=== PATIENT | male | born 1975 | race Caucasian/White ===

== ENCOUNTER 2018-10-15 19:14 | Emergency (ER) | payer OTHER ==
[~2018-10-15] VITALS: Ht 193 cm; Wt 130.8 kg
[2018-10-15] MEDS ORDERED: SODIUM CHLORIDE FLUSH 10ML SYR IVF ONE (19:30)
--- NOTE | 2018-10-15 19:37 | NUR ---
IV ESTABLISHED. DR. RIVERA HAS BEEN IN TO EVAL. ALL MONITORS IN PLACE. EKG WAS DONE IN TRIAGE.
[2018-10-15] MEDS ORDERED: DILTIAZEM 5 MG/ML, 5ML ONE (19:40)
[2018-10-15 19:44] LABS: BASOPHILS # (AUTO) 0.03 x10^3/uL (0-0.1); BASOPHILS % (AUTO) 0 % (0-1); EOSINOPHILS # (AUTO) 0.29 x10^3/uL (0-0.4); EOSINOPHILS % (AUTO) 3 % (1-7); LYMPHOCYTES # (AUTO) 3.22 x10^3/uL (1-3.4); LYMPHOCYTES % (AUTO) 28 % (22-44); MD NO; MEAN CORPUSCULAR HEMOGLOBIN 29.5 pg (27.5-34.5); MEAN CORPUSCULAR HGB CONC 33.3 g/dL (33.2-36.2); MEAN CORPUSCULAR VOLUME 88.7 fL (81-97); MEAN PLATELET VOLUME 8.9 fL (7.4-10.4); MONOCYTES # (AUTO) 0.71 x10^3/uL (0.2-0.8); MONOCYTES % (AUTO) 6 % (2-9); NEUTROPHILS # (AUTO) 7.34 x10^3/uL (1.8-6.8); NEUTROPHILS % (AUTO) 63 % (42-75); PLATELET COUNT 277 x10^3/uL (130-400); RED BLOOD COUNT 5.08 x10^6/uL (4.38-5.82)
--- NOTE | 2018-10-15 19:46 | NUR ---
PT. MEDICATED PER JUN. PT. DENIES ANY PAIN. HR DOWN TO 120'S AND APPEARED IRREGULAR ON MONITOR. AT THIS TIME. HR IN THE 80'S AND APPERS TO BE IN NSR. OBTAINING 2ND EKG.
--- NOTE | 2018-10-15 19:50 | NUR ---
PT. STATES "I FEEL SO MUCH BETTER NOW."
[2018-10-15] MEDS ORDERED: DILTIAZEM 5 MG/ML, 5ML IV ONE (20:00)
[2018-10-15 20:02] LABS: ANION GAP 3 mmol/L (5-15); CALCIUM 9.2 mg/dL (8.5-10.1); CHLORIDE 111 mmol/L (98-107); CREATININE 1.53 mg/dL (0.7-1.3)
[2018-10-15 20:06] LABS: FREE T4 (FREE THYROXINE) 0.91 ng/dL (0.76-1.46); TROPONIN I < 0.015 ng/mL (0.000-0.045)
[2018-10-15] MEDS ORDERED: DILTIAZEM 120 MG CAP.ER.24H PO ONE (20:46)
--- NOTE | 2018-10-15 20:50 | NUR ---
MED REQUESTED FROM PHARMACY.
[2018-10-15 20:56] VITALS: BP 103/70
== END 2018-10-15 21:03 | disposition home or self-care (01) ==
LOC: ED 21:00
DX: I48.92 Unspecified atrial flutter (principal)
CPT/HCPCS: 36415; 71045; 80048; 82040; 83735; 83880; 84439; 84443; 84484; 85025; 93005; 96374

== ENCOUNTER 2018-12-03 12:25 | Outpatient (CLI) | payer OTHER | END 2018-12-03 23:59 | disposition home or self-care (01) | LOC: CVU 12:25 | PROVIDERS: ATTEND Internal Medicine Cardiovascular Disease | DX: R00.0 Tachycardia, unspecified (principal); I48.91 Unspecified atrial fibrillation; I10 Essential (primary) hypertension; E66.9 Obesity, unspecified | CPT/HCPCS: 0399T; 93306 ==

== ENCOUNTER 2019-08-11 00:50 | Inpatient (IN) | payer OTHER ==
[~2019-08-11] VITALS: Ht 190.5 cm; Wt 131.0 kg
[2019-08-11] MEDS ORDERED: ONDANSETRON 2MG/ML, 2ML IVPush ONE (01:00)
[2019-08-11] MEDS ORDERED: HYDROmorphone 2 MG/ML, 1ML IVPush PRN (01:00)
[2019-08-11] MEDS ORDERED: SODIUM CHLORIDE 0.9% 1,000ML IVBOLUS ONE (01:00)
[2019-08-11] MEDS ORDERED: HYDROmorphone 1 MG/ML, 1ML INJ ONE (01:12)
[2019-08-11] MEDS ORDERED: ONDANSETRON 2MG/ML, 2ML ONE (01:12)
--- NOTE | 2019-08-11 01:17 | NUR ---
IV SITE STARTED, LABS DRAWN, IV FLUIDS INFUSING, PT MEDICATED PER MAR
--- NOTE | 2019-08-11 01:22 | NUR ---
technical training manager at bedside
[2019-08-11 01:23] LABS: BASOPHILS # (AUTO) 0.06 x10^3/uL (0-0.1); BASOPHILS % (AUTO) 1 % (0-1); EOSINOPHILS # (AUTO) 0.14 x10^3/uL (0-0.4); EOSINOPHILS % (AUTO) 1 % (1-7); LYMPHOCYTES # (AUTO) 1.96 x10^3/uL (1-3.4); LYMPHOCYTES % (AUTO) 18 % (22-44); MD NO; MEAN CORPUSCULAR HGB CONC 33.5 g/dL (33.2-36.2); MEAN CORPUSCULAR VOLUME 86.6 fL (81-97); MONOCYTES # (AUTO) 0.51 x10^3/uL (0.2-0.8); MONOCYTES % (AUTO) 5 % (2-9); NEUTROPHILS % (AUTO) 76 % (42-75); PLATELET COUNT 240 x10^3/uL (130-400); RED CELL DISTRIBUTION WIDTH 14.5 % (9.4-14.8)
[2019-08-11 01:30] LABS: ALANINE AMINOTRANSFERASE 68 U/L (12-78); ALBUMIN 3.8 g/dL (3.4-5.0); ANION GAP 6 mmol/L (5-15); CALCIUM 9.1 mg/dL (8.5-10.1); CHLORIDE 113 mmol/L (98-107); CREATININE 1.19 mg/dL (0.7-1.3)
[2019-08-11 01:32] LABS: ALKALINE PHOSPHATASE 98 U/L (45-117); BILIRUBIN,TOTAL 0.4 mg/dL (0.2-1.0); TOTAL PROTEIN 7.9 g/dL (6.4-8.2)
[2019-08-11] MEDS ORDERED: RISP0.5T3 PO (01:37)
[2019-08-11] MEDS ORDERED: DIAZ10TA4 PO (01:37)
--- NOTE | 2019-08-11 01:38 | NUR ---
PT RESTING Calmly, monitors in place, siderail sup x2, call light within reach. awaiting lab, xray, ultrasound results
--- NOTE | 2019-08-11 02:16 | NUR ---
pt to ct
[2019-08-11] MEDS ORDERED: OMNIPAQUE 350 MG/ML, 100ML BOTTLE ONE (02:23)
[2019-08-11] MEDS ORDERED: LACTATED RINGERS 1,000 ML IVBOLUS ONE (03:00)
[2019-08-11] MEDS ORDERED: ONDANSETRON 2MG/ML, 2ML IVPush PRN (03:30)
[2019-08-11] MEDS ORDERED: morphine SULFATE 10 MG/ML, 1ML IVPush PRN (03:30)
--- NOTE | 2019-08-11 03:50 | NUR ---
urine sample sent
[2019-08-11] MEDS ORDERED: DIAZEPAM 5 MG/ML, 2ML IV PRN (04:00)
[2019-08-11 04:25] LABS: MICROSCOPIC NOT IND
[2019-08-11 04:41] LABS: CULTURE INDICATED? NO
[2019-08-11 04:49] VITALS: BP 115/73
[2019-08-11] MEDS: SODIUM CHLORIDE 0.9% 1,000 ML IV SCH ×3 (05:03→18:02)
[2019-08-11 06:58] VITALS: BP 107/71
[2019-08-11] MEDS: PANTOPRAZOLE 40 MG IV IVPush SCH (07:45)
[2019-08-11] MEDS ORDERED: PIPERACILLIN/TAZO/PMX 4.5GM 100 ML IV SCH (09:00)
[2019-08-11] MEDS ORDERED: SINCALIDE (KINEVAC) 5 MCG ONE (10:02)
[2019-08-11 13:55] VITALS: BP 127/84
[2019-08-11] MEDS: PIPERACILLIN/TAZO/PMX 4.5GM 100 ML IV SCH ×2 (18:02→23:41)
[2019-08-11 18:41] VITALS: BP 17/75
[2019-08-12 00:38] VITALS: BP 133/86
[2019-08-12] MEDS: SODIUM CHLORIDE 0.9% 1,000 ML IV SCH ×4 (02:03→22:07)
[2019-08-12] MEDS: PIPERACILLIN/TAZO/PMX 4.5GM 100 ML IV SCH ×4 (05:32→23:35)
[2019-08-12 06:15] LABS: BASOPHILS # (AUTO) 0.02 x10^3/uL (0-0.1); BASOPHILS % (AUTO) 0 % (0-1); EOSINOPHILS # (AUTO) 0.18 x10^3/uL (0-0.4); EOSINOPHILS % (AUTO) 3 % (1-7); LYMPHOCYTES # (AUTO) 1.68 x10^3/uL (1-3.4); LYMPHOCYTES % (AUTO) 29 % (22-44); MD NO; MEAN CORPUSCULAR HEMOGLOBIN 28.8 pg (27.5-34.5); MEAN CORPUSCULAR HGB CONC 33.1 g/dL (33.2-36.2); MEAN CORPUSCULAR VOLUME 87.1 fL (81-97); MEAN PLATELET VOLUME 9.1 fL (7.4-10.4); MONOCYTES # (AUTO) 0.42 x10^3/uL (0.2-0.8); MONOCYTES % (AUTO) 7 % (2-9); NEUTROPHILS # (AUTO) 3.47 x10^3/uL (1.8-6.8); NEUTROPHILS % (AUTO) 60 % (42-75); PLATELET COUNT 193 x10^3/uL (130-400); RED BLOOD COUNT 4.57 x10^6/uL (4.38-5.82)
[2019-08-12 06:16] LABS: ALANINE AMINOTRANSFERASE 131 U/L (12-78); ALBUMIN 3.2 g/dL (3.4-5.0); ANION GAP 6 mmol/L (5-15); CALCIUM 8.3 mg/dL (8.5-10.1); CHLORIDE 112 mmol/L (98-107); CREATININE 0.87 mg/dL (0.7-1.3)
[2019-08-12 06:19] LABS: ALKALINE PHOSPHATASE 79 U/L (45-117); BILIRUBIN,TOTAL 0.7 mg/dL (0.2-1.0); TOTAL PROTEIN 6.8 g/dL (6.4-8.2)
[2019-08-12 06:53] VITALS: BP 118/74
[2019-08-12] MEDS: PANTOPRAZOLE 40 MG IV IVPush SCH (07:37)
[2019-08-12 15:49] VITALS: BP 133/83
[2019-08-12 18:51] VITALS: BP 135/84
[2019-08-13 01:25] VITALS: BP 129/86
[2019-08-13 04:31] LABS: BASOPHILS # (AUTO) 0.02 x10^3/uL (0-0.1); BASOPHILS % (AUTO) 0 % (0-1); EOSINOPHILS # (AUTO) 0.17 x10^3/uL (0-0.4); EOSINOPHILS % (AUTO) 3 % (1-7); LYMPHOCYTES # (AUTO) 1.86 x10^3/uL (1-3.4); LYMPHOCYTES % (AUTO) 34 % (22-44); MD NO; MEAN CORPUSCULAR HEMOGLOBIN 28.9 pg (27.5-34.5); MEAN CORPUSCULAR HGB CONC 33.6 g/dL (33.2-36.2); MEAN CORPUSCULAR VOLUME 86.1 fL (81-97); MEAN PLATELET VOLUME 8.9 fL (7.4-10.4); MONOCYTES # (AUTO) 0.38 x10^3/uL (0.2-0.8); MONOCYTES % (AUTO) 7 % (2-9); NEUTROPHILS # (AUTO) 3.11 x10^3/uL (1.8-6.8); NEUTROPHILS % (AUTO) 56 % (42-75); PLATELET COUNT 199 x10^3/uL (130-400); RED BLOOD COUNT 4.75 x10^6/uL (4.38-5.82); RED CELL DISTRIBUTION WIDTH 14.4 % (9.4-14.8)
[2019-08-13 04:44] LABS: ALANINE AMINOTRANSFERASE 107 U/L (12-78); ALBUMIN 3.3 g/dL (3.4-5.0); ANION GAP 4 mmol/L (5-15); CALCIUM 8.6 mg/dL (8.5-10.1); CHLORIDE 114 mmol/L (98-107); CREATININE 0.91 mg/dL (0.7-1.3)
[2019-08-13 04:46] LABS: ALKALINE PHOSPHATASE 82 U/L (45-117); BILIRUBIN,TOTAL 0.8 mg/dL (0.2-1.0); TOTAL PROTEIN 7.2 g/dL (6.4-8.2)
[2019-08-13] MEDS: SODIUM CHLORIDE 0.9% 1,000 ML IV SCH ×2 (05:32→11:43)
[2019-08-13] MEDS: PIPERACILLIN/TAZO/PMX 4.5GM 100 ML IV SCH ×2 (05:32→11:43)
[2019-08-13] MEDS: PANTOPRAZOLE 40 MG IV IVPush SCH (07:27)
[2019-08-13 08:12] VITALS: BP 130/84
[2019-08-13] MEDS ORDERED: AZIT250T PO (08:50)
== END 2019-08-13 14:18 | disposition home or self-care (01) | DRG 440 ==
LOC: ED 01:44 → EDIP 03:20 → 3N 04:38
PROVIDERS: ADMIT Internal Medicine; ATTEND Internal Medicine
DX: K85.10 Biliary acute pancreatitis without necrosis or infection (principal); F31.9 Bipolar disorder, unspecified; I10 Essential (primary) hypertension; K82.8 Other specified diseases of gallbladder; Z83.3 Family history of diabetes mellitus
CPT/HCPCS: 36415; 71045; 74177; 76700; 78226; 80053; 81003; 82150; 83605; 83690; 83735; 84478; 85025; 93005; 96361; 96374; 96375; G0378; J1170; J2405; J2543; Q9967; A9537; C9113; J2805; J7030; J7120